=== PATIENT | female | born 1950 | race Caucasian/White ===

== ENCOUNTER → 2020-06-11 | Outpatient (CLI) | payer MEDICARE | END | disposition home or self-care (01) | LOC: RAH 09:49 | PROVIDERS: ATTEND Internal Medicine Hematology & Oncology | DX: I82.493 Acute embolism and thrombosis of other specified deep vein of lower extremity, bilateral (principal); C50.511 Malignant neoplasm of lower-outer quadrant of right female breast | CPT/HCPCS: 93970 ==

== ENCOUNTER → 2020-06-15 | Outpatient (CLI) | payer MEDICARE | END | disposition home or self-care (01) | LOC: RAH 12:22 | PROVIDERS: ATTEND Internal Medicine Hematology & Oncology | DX: C50.511 Malignant neoplasm of lower-outer quadrant of right female breast (principal); R60.0 Localized edema | CPT/HCPCS: 76604 ==

== ENCOUNTER → 2023-02-07 | Outpatient (CLI) | payer MEDICARE | END | disposition home or self-care (01) | LOC: RAH 10:14 | PROVIDERS: ATTEND Nurse Practitioner Adult Health | DX: R05.9 Cough, unspecified (principal); M40.294 Other kyphosis, thoracic region; M47.815 Spondylosis without myelopathy or radiculopathy, thoracolumbar region; Z95.828 Presence of other vascular implants and grafts | CPT/HCPCS: 71046 ==

== ENCOUNTER 2025-04-21 15:59 | Emergency (ER) | payer MEDICARE ==
[~2025-04-21] VITALS: Ht 162.6 cm; Wt 84.4 kg
--- NOTE | 2025-04-21 16:37 | EKG ---
[facility] Test Date: 2025-04-21 Test Time: 16:34:05 Pat Name: LEONEL EDWARDS Department: ED Patient ID: [id number] Room: Gender: F Engineer: [id number] : 1950 Requested By: DARREN MEDINA Order Number: [id number] Reading MD: Allan Rosario Measurements Intervals Brooks Rate: 65 P: 0 SD: 69 QRS: 48 QRSD: 99 T: 11 QT: 388 QTc: 405 Interpretive Statements Sinus rhythm Low voltage, precordial leads No previous ECG available for comparison Electronically Signed On 04-23-2025 10:27:10 CDT by Allan Rosario Please click the below link to view image of tracing.
--- NOTE | 2025-04-21 16:41 | ERN ---
General Chief Complaint: Cough Stated Complaint: PHYSICIANS REFERRAL FOR PNEMONIA,BACK PAINFROMFALL Time Seen by MD: 16:03 Source: patient History of Present Illness Initial Comments Patient is a 75-year-old female coming in with a cough. Patient states that she has had this cough for two weeks was evaluated by her PCP was diagnosed with pneumonia. Patient finished her course of antibiotics but states he is still having some cough and congestion. PCP evaluated her again today sent her in for a chest x-ray. Allergies: Coded Allergies: No Known Allergies (Unverified Allergy, Unknown, 04/21/25) Past Medical History Past Medical History: Cancer, Diabetes-Type II, High Cholesterol, Heart Disea se, Hypertension, Hypothyroid, Other Medical History Other: GLAUCOMA, MITRAL VALVE PROLAPSE, CHRONIC PAIN, HX OF BREAST CA Past Surgical History: Tonsillectomy, BTL Surgical History Other: RT BREAST ROS Dictation CONSTITUTIONAL: No chills, no fever, no weakness, no diaphoresis, no malaise. HEAD/FACE: No signs of trauma. EENT: No eye pain, no blurred vision, no tearing, no double vision, no ear pain, no ear discharge, no nose pain, no nasal congestion, no throat pain, no throat swelling, no mouth pain. RESPIRATORY: cough, no orthopnea, no SOB, no stridor, no wheezing. CARDIOVASCULAR: No chest pain, no edema, no palpitations, no syncope. GASTROINTESTINAL/ABDOMINAL: No abdominal pain, no constipation, no diarrhea, no nausea, no vomiting. GENITOURINARY: No abnormal discharge, no dysuria, no frequent urination, no hematuria. No complaints of pain in the genitals. MUSCULOSKELETAL: No back pain, no gout, no joint pain, no joint swelling, no muscle pain, no muscle stiffness, no neck pain. INTEGUMENTARY: No change in color, no change in hair/nails, no dryness, no lesion, no lumps, no rash. NEUROLOGICAL/PSYCH: No anxiety, not depressed, no emotional problem, no hea dache, no numbness, no pre-existing deficit, no history of seizures, no tremors, no weakness. HEMATOLOGIC/LYMPHATIC: Not anemic, no history of blood clots, no apparent bleeding, no bruising, glands not swollen. All Systems Negative, Except as Noted. Physical Exam Physical Exam Dictation VITAL SIGNS: Reviewed. GENERAL APPEARANCE: Alert, oriented x3, no acute distress, obese. HEAD AND FACE: Non-traumatic. EYES: PERRL, pink conjunctivas, eyelid no trauma, anterior chamber clear. EARS: Pinnas intact and no signs of trauma or erythema. Ear canals clear and no discharge. TMs no erythema. NOSE: No discharge, no bleeding. OROPHARYNX: Mouth normal, teeth no caries, tongue pink. Pharynx clear, no erythema. Tonsils no exudates, no abscesses noted. Mucous membrane moist. NECK: Supple, non-tender, no thyromegaly, no masses, no JVD, no bruits. BREAST: Deferred. CHEST: No tenderness, no crepitus, no paradoxical movement, no retractions. LUNGS: Clear, well-ventilated, symmetric, no rales, no wheezing, no rhonchi, no stridor, good breath sounds bilaterally. HEART: Regular rate, regular rhythm, no murmur, no gallops. VASCULAR: No peripheral edema. ABDOMEN: Soft, positive bowel sounds, nondistended, no guarding, nontender, no rebound, no masses no hepatomegaly, no splenomegaly, no Graves's sign, no hernias. RECTAL: Deferred. GENITAL: Deferred. NEUROLOGICAL: Normal speech, gross motor function intact, gross sensory function intact. MUSCULOSKELETAL: Neck nontender, full range of motion, back nontender, full range of motion. EXTREMITIES: Nontender, full range of motion. SKIN: Color pink, dry, no turgor, no rash, no lacerations, no abrasions, no contusions. LYMPHATICS: Deferred. Results Laboratory and Microbiology Lab and Micro Result Laboratory Tests Test 04/21/25 16:50 04/21/25 19:17 White Blood Count 8.9 K/uL (4.8-10.8) Red Blood Count 3.70 MIL/uL (4.00-5.50) L Hemoglobin 11.6 g/dL (12.0-16.0) L Hematocrit 35.9 % (36-48) L Mean Corpuscular Volume 97.0 fL (79-99) Mean Corpuscular Hemoglobin 31.4 pg (27.0-33.0) Mean Corpuscular Hemoglobin Concent 32.3 g/dL (32.0-36.0) Red Cell Distribution Width 14.8 % (11.0-15.5) Platelet Count 281 K/uL (130-400) Mean Platelet Volume 9.4 fL (7.5-10.5) Immature Granulocyte % (Auto) 0.5 % (0-1) Neutrophils (%) (Auto) 72.8 % (40.0-77.0) Lymphocytes (%) (Auto) 17.6 % (21.0-51.0) L Monocytes (%) (Auto) 7.7 % (3.0-13.0) Eosinophils (%) (Auto) 0.7 % (0.0-8.0) Basophils (%) (Auto) 0.7 % (0.0-5.0) Neutrophils # (Auto) 6.5 K/uL (1.8-7.7) Lymphocytes # (Auto) 1.6 K/uL (1.0-4.8) Monocytes # (Auto) 0.7 K/uL (0.1-1.0) Eosinophils # (Auto) 0.06 K/uL (0.00-0.70) Basophils # (Auto) 0.06 K/uL (0.00-0.20) Absolute Immature Granulocyte (auto 0.04 K/uL (0-1) Nucleated Red Blood Cells 0.0 % (0.0-0.19) Sodium Level 138 mmol/L (136-145) Potassium Level 3.8 mmol/L (3.5-5.1) Chloride Level 100 mmol/L (101-111) L Carbon Dioxide Level 30 mmol/L (21-32) Blood Urea Nitrogen 29 mg/dL (7-18) H Creatinine 1.0 mg/dL (0.5-1.0) Glomerular Filtration Rate Calc 59 mL/min (>90) Random Glucose 180 mg/dL (70-105) H Total Calcium 9.3 mg/dL (8.5-10.1) Troponin I High Sensitivity 4 ng/L (4-50) B-Type Natriuretic Peptide 23 pg/mL (0-100) Influenza Type A Antigen Negative For Type A Influenza Type B Antigen Negative For Type B SARS-CoV-2, RNA, NAAT NEGATIVE SARS CoV-2 Group A Streptococcus Rapid negative (NEGATIVE) Labs Reviewed?: Yes EKG/XRAY/US/CT/MRI EKG Comment 04/21/2025 time 4:34 p.m. Ventricular rate 65 Sinus rhythm [place] [address] wave elevation or depression MDM MDM: Differential diagnosis: Rationale: Tests considered and ordered secondary to shared decision making include: labs, ECG and radiology Previous outside records reviewed: Old ER visits. Risk of complication and/or morbidity or mortality of patient management: None Medications-Per medication reconciliation Need for hospitalization: Patient does meet criteria for hospitalization. Need for emergency major/minor surgery: No There are no social concerns with this patient. Prescription drug management Prescriptions will include symptomatic care Patient's prior external medical records from other ER visits were reviewed by me as indicated. Prior testing and results from previous visits were reviewed. Prior tests were taken into account with medical decision making and resource utilization, independent historian/historians were used to obtain complete medical history. I independently interpreted the test that were performed, results were reviewed by me and considered findings on radiology if ordered. Medical management and examination interpretation discussions were had by me with other qualified healthcare professionals as indicated for the patient's care. Patient's labs are normal with the most part. CBC shows an anemia with a hemoglobin of 11.6. Chemistry panel shows a hypochloremia and a slight increase in the BUN. Glucose 180. Nasal swabs are negative for COVID strep and influenza. Patient's chest x-ray is also normal. When I went to discuss results with the patient they wanted me to address her back pain. She fell approximately once a month ago onto her back. And since then she has had pain while coughing. She points to her superior abdominal inferior ribcage portions bilaterally as the areas of worse pain. She states that the primary care physician has been giving her cough suppressants to deal with the pain. A quick exam showed no thoracic spine tenderness. Her worse tenderness was the inferior ribs on her flanks. In addition patient had a new fever this morning, but declines a UA. I will inject the inferior rib areas with a subcutaneous injection of Kenalog and nor flex. Then we will D/C the pt home. ED Course Orders Procedure Category Date Status Time Cbc With Differential LAB 04/21/25 Complete 16:27 B-Type Natriuretic LAB 04/21/25 Complete Peptide 16:27 Chest 1vw RAD 04/21/25 Resulted 16:27 12 Lead Ekg Tracing- EKG 04/21/25 Complete Technical 16:27 Troponin I High LAB 04/21/25 Complete Sensitivity 16:27 Basic Metabolic Panel LAB 04/21/25 Complete 16:27 Covid Rna Naat LAB 04/21/25 Complete 16:27 Influenza Type A & B, LAB 04/21/25 Complete Rapid 16:27 Rapid (Group A Strep) LAB 04/21/25 Complete 16:27 Orphenadrine Citrate PHA 04/21/25 In Process (Norflex) 20:30 Triamcinolone Acet PHA 04/21/25 In Process 40mg/Ml 1ml (Kenalog 20:30 Urinalysis Profile LAB 04/21/25 Logged 20:21 Current Medications Medications (Trade) Dose Ordered Sig/Carmen Route PRN Reason Start Time Stop Time Status Last Admin Dose Admin Orphenadrine Citrate (Norflex) 60 mg ONCE IM 04/21/25 20:30 04/21/25 23:59 04/21/25 20:36 Triamcinolone Acetonide (Kenalog 40) 40 mg ONCE SQ 04/21/25 20:30 04/21/25 23:59 04/21/25 20:35 Vital Signs Date Time Temp Pulse Resp B/P (MAP) Pulse Ox O2 Delivery O2 Flow Rate FiO2 04/21/25 16:07 99.5 71 16 153/63 99 Room Air 0 DX & DISP Disposition: Discharge Departure Impression: Primary Impression: Cough Additional Impression: Rib pain Condition: Stable Additional Instructions: You do not have signs of an upper respiratory tract infection or pneumonia based on our lab studies and chest x-rays. You do have a cough and you may have a viral bronchitis. I have given you a subcutaneous injection of steroids and muscle relaxants to help with the rib pain. Please feel free to return to the emergency room if your upper respiratory tract infections do not improve if you start to feel febrile lightheaded or if you feel your cough is getting worse. Referrals: LISA JEFFERSON MD (PCP) DARREN MEDINA MD Apr 21, 2025 16:41 BOWEN KILLIAN MD Apr 21, 2025 20:43
[2025-04-21 17:00] LABS: BASOPHILS # (AUTO) 0.06 K/uL (0.00-0.20); BASOPHILS % (AUTO) 0.7 % (0.0-5.0); EOSINOPHILS # (AUTO) 0.06 K/uL (0.00-0.70); EOSINOPHILS % (AUTO) 0.7 % (0.0-8.0); HEMATOCRIT 35.9 % (36-48); IMMATURE GRANULOCYTE ABSOLUTE 0.04 K/uL (0-1); LYMPHOCYTES # (AUTO) 1.6 K/uL (1.0-4.8); LYMPHOCYTES % (AUTO) 17.6 % (21.0-51.0); MEAN CORPUSCULAR HEMOGLOBIN 31.4 pg (27.0-33.0); MEAN CORPUSCULAR HGB CONC 32.3 g/dL (32.0-36.0); MONOCYTES # (AUTO) 0.7 K/uL (0.1-1.0); MONOCYTES % (AUTO) 7.7 % (3.0-13.0); NEUTROPHILS # (AUTO) 6.5 K/uL (1.8-7.7); NEUTROPHILS % (AUTO) 72.8 % (40.0-77.0); PLATELET COUNT (AUTO) 281 K/uL (130-400); RED CELL DISTRIBUTION WIDTH 14.8 % (11.0-15.5); WHITE BLOOD COUNT (AUTO) 8.9 K/uL (4.8-10.8)
[2025-04-21 17:08] LABS: POTASSIUM 3.8 mmol/L (3.5-5.1)
[2025-04-21 17:21] LABS: B-TYPE NATRIURETIC PEPTIDE 23 pg/mL (0-100)
--- NOTE | 2025-04-21 19:28 | HMCIMG ---
CHEST 1VW HISTORY: Cough COMPARISON: 02/07/2023 FINDINGS: A frontal projection of the chest was obtained. No acute pulmonary infiltrates is seen. The heart is borderline enlarged. Prominent interstitial markings are seen. Port-A-Cath is seen entering from the left. Degenerative changes are seen. No evidence of aortic calcification is seen. IMPRESSION: 1. No acute pulmonary infiltrate is seen.
[2025-04-21 19:38] LABS: RAPID GROUP A STREP negative (NEGATIVE)
[2025-04-21 19:39] LABS: SARS-CoV-2, RNA, NAAT NEGATIVE SARS CoV-2 (NEGATIVE)
[2025-04-21 19:48] LABS: INFLUENZA TYPE A Negative For Type A (NEGATIVE); INFLUENZA TYPE B Negative For Type B (NEGATIVE)
[2025-04-21] MEDS: TRIAMCINOLONE ACETONIDE 40 MG/ML 1ML VIAL SQ SCH (20:35)
[2025-04-21] MEDS: ORPHENADRINE 60MG/2ML IM SCH (20:36)
[2025-04-21 20:53] VITALS: BP 153/64; PULSE 72; RESP 18; TEMP 98.4; O2SAT 98
== END 2025-04-21 21:02 | disposition home or self-care (01) ==
LOC: EDH 15:59
DX: R05.9 Cough, unspecified (principal); R07.81 Pleurodynia; E03.9 Hypothyroidism, unspecified; E11.9 Type 2 diabetes mellitus without complications; E78.00 Pure hypercholesterolemia, unspecified; I10 Essential (primary) hypertension; Z85.3 Personal history of malignant neoplasm of breast; Z90.89 Acquired absence of other organs; Z98.51 Tubal ligation status; Z20.822 Contact with and (suspected) exposure to COVID-19
CPT/HCPCS: 99285; 71045; 87635; 84484; 80048; 83880; 85025; 87880; 87804 ×2; 36415; 96372 ×2; 93005; J3301; J2360